=== PATIENT | female | born 1975 | race Caucasian/White ===

== ENCOUNTER 2019-08-24 11:15 | Day surgery (SDC) | payer BC ==
[2019-08-19 15:41] LABS: Urine Appearance CLEAR; Urine Bilirubin NEGATIVE (NEG); Urine Blood NEGATIVE (NEG); Urine Color YELLOW; Urine Glucose NEGATIVE (NEG); Urine Protein NEGATIVE (NEG); Urine Urobilinogen 0.2 mg/dL (0.2-1.0)
[2019-08-19 15:42] LABS: Urine Microscopic Reflex NO UMIC
[2019-08-19 15:47] LABS: Absolute Lymphocytes (CBC) 2.1 K/uL (0.7-4.9); Basophils % 0.7 % (0-1.3); Hematocrit 40.1 % (36.0-45.0); Lymphocytes % 31.9 % (15.3-44.8); MPV 8.6 fL (7.6-11.3); RBC Red Blood Cell Count 4.53 M/uL (3.86-4.86)
[~2019-08-24 11:15] MED LIST: Ringers Lactate 1,000 ML IV SCH; SCOPOLAMINE HYDROBROMIDE PATCH TD SCH
--- OUTSIDE RECORDS SUMMARY | 2019-08-24 11:19 | XMS REPORT ---
:1975 Author Organization eClinicalWorks Care Team Providers Name Role Phone Daylin Au Provider Role Unavailable Allergies No Known Allergies Problems Problem Type Condition Code Onset Dates Condition Status Assessment Depression with anxiety F41.8 Active Problem Gastroesophageal reflux disease, K21.9 Active esophagitis presence not specified Problem Migraine without status G43.909 Active migrainosus, not intractable, unspecified migraine type Problem Depression with anxiety F41.8 Active Assessment Migraine without status G43.909 Active migrainosus, not intractable, unspecified migraine type Problem Acne, unspecified acne type L70.9 Active Problem Attention deficit disorder, F98.8 Active unspecified hyperactivity presence Medications Medication Code Code Instructions Start End Date Status Dosage System Date Topiramate [facility] 34249093515 100 mg Orally Active 1 tablet Once a day Sertraline HCl [facility] 96151549362 50 MG Orally Active 1 tablet Once a day Results No Known Results Summary Purpose eClinicalWorks Submission
[2019-08-24] MEDS ORDERED: SCOPOLAMINE HYDROBROMIDE PATCH TD ONE (11:28)
[2019-08-24] MEDS ORDERED: Ringers Lactate 1,000 ML IV ONE ×4 (11:28→18:41)
[2019-08-24] MEDS ORDERED: CEFAZOLIN/SWI 2gm 2 GM/20 ML SYR ONE (11:28)
[2019-08-24] MEDS: CEFAZOLIN/SWI 2gm 2 GM/20 ML SYR IVP SCH ×3 (11:48→13:57)
[2019-08-24] MEDS ORDERED: ROCURONIUM 50 MG/5 ML VIAL IV ONE (13:18)
[2019-08-24] MEDS ORDERED: GLYCOPYRROLATE 0.2 MG/ML SYR ONE ×2 (13:18→15:48)
[2019-08-24] MEDS ORDERED: propofoL 200 MG/20 ML VIAL IV ONE (13:18)
[2019-08-24] MEDS ORDERED: dexAMETHasone 10 MG/ML VIAL ONE (13:18)
[2019-08-24] MEDS ORDERED: MIDAZOLAM HCL 2 MG/2 ML INJ ONE (13:19)
[2019-08-24] MEDS ORDERED: FENTANYL CITR 250 MCG/5 ML ONE (13:19)
[2019-08-24] MEDS ORDERED: ONDANSETRON 4 MG/2 ML VIAL ONE ×2 (13:19→16:29)
[2019-08-24] MEDS ORDERED: LIDOCAINE 2% MPF 5 ML VIAL ONE (13:19)
[2019-08-24] MEDS: BUPIVACAINE 0.25% PF 30 ML VIAL ONE ×2 (14:01→14:31)
[2019-08-24] MEDS ORDERED: NS 0.9% VIAL 10 ML ONE (15:11)
[2019-08-24] MEDS ORDERED: VECURONIUM 10 MG/VIAL IV ONE (15:13)
[2019-08-24] MEDS ORDERED: KETOROLAC 30 MG/ML INJ ONE (15:28)
[2019-08-24] MEDS ORDERED: NEOSTIGMINE 1 MG/ML -10 ML VIAL ONE (15:48)
[2019-08-24] MEDS: HYDROMORPHONE HCL 1 MG/ML INJ ONE ×4 (16:18→16:36)
[2019-08-24] MEDS ORDERED: HYDROCODONE/APAP 5/325 MG TAB ONE (17:28)
[2019-08-24 17:52] VITALS: BP 94/57; TEMP 97.2; O2SAT 93
--- NOTE | 2019-08-27 10:18 | OP ---
Date of Procedure: 08/24/2019 Surgeon: Ophelia Garcia MD Cigarette Filter Inspector: Anabela Francois. Preoperative Diagnoses: 1.Pelvic pain. 2.Recurrent menorrhagia after ablation. Postoperative Diagnoses: 1.Pelvic pain. 2.Recurrent menorrhagia after ablation. 3.Bilateral hematosalpinges. 4.Bladder adhesions. 5.Uterine prolapse. Procedures Performed: 1.Total laparoscopic hysterectomy with bilateral salpingectomy. 2.Uterosacral ligament suspension, colpopexy. 3.Cystoscopy. 4.Right ovarian cystectomy. Anesthesia: General. Estimated Blood Loss: Minimal. Specimens: Uterus and bilateral tubes. Complications: No complications. Drains: No drains. Condition: Stable. Indications: Patient with history of endometrial ablation in 1999, has recurrent bleeding over the p ast year, increasing pain at the onset, and then followed by recurrent bleeding. On evaluation, no a dnexal masses. No suspicion for endometrial atypia or malignancy. Transvaginal ultrasound showed ca vity obliteration. Attempted endometrial sampling was inadequate, limited evaluation due to scant am ount of endometrial tissue retrieved during the procedure. So, she was counseled her options of usin g depot medroxyprogesterone acetate, possibly using combination oral contraceptive pill, but she has headaches, which are contraindication to the OCs. All alternatives including diagnostic laparoscopy, possible salpingectomy if endometriosis is present, hysterectomy with bilateral salpingec pedro pablo, and endometriosis removal if present were all reviewed with the patient. Benefits and risks of all procedures were reviewed. She was then consented and taken to the OR. She is status post tubal ligation. Description Of Procedure: After informed consent was verified, she was taken back to the OR. 2 g of Ancef were given. She was placed in supine position on the operating table. General anesthesia giv en. Placed in dorsal lithotomy position. Pelvic exam performed. Uterus anteflexed. No adnexal mas ses. No cul-de-sac nodularity or uterosacral nodularity. Abdomen prepped with ChloraPrep. Vaginal prep with Betadine. Draped in a sterile fashion. Time-out was done. Arms were tucked by the side. SCDs placed. After time-out was complete, then the proced ure was started. Speculum was placed to expose the cervix. Anterior lip grasped with Allis clamps. A uterine manipul ator equivalent to VCare cup was introduced into the uterine cavity. There was slight difficulty ent ering the cavity, but once this was entered and the manipulator was placed in the uterine cavity, the cup was fit around the cervix. Serrano was placed in the bladder and attached to cysto tubing to an L R bag, emptied 300. This area was draped. A 1 cm infraumbilical incision was made with a scalpel us ing the open laparoscopy technique. Fascia was incised. Peritoneum was picked up, incised sharply, and S-retractors placed in the peritoneal cavity. Edges of the fascia were tagged with 0 Vicryl sutu res. Site of entry unremarkable. There were omental adhesions above the level of the entry. Omenta l adhesions of bowel was seen here. Patient was then placed in Trendelenburg position. There were s mall bowel adhesions on the right sigmoid, but nothing that needed to be taken down in order for me t o perform a procedure. A 5 mm left lower quadrant port was placed and a 10 mm suprapubic port was placed under direct vision once Marcaine was injected at the fascia level and the skin. Inspection of the peritoneal cavity revealed normal appendix, no endometriosis on the pelvic peritone um with careful examination, ovaries normal, bilateral hematosalpinges. There was a large clip, prob ably a Filshie clip floating in the cul-de-sac, but nothing on the opposite side was seen. Once all inspection was done, bladder adhesions were present. Plan was to perform a hysterectomy. There was laxity of the vaginal apex, point C was -3, so also considered performing a uterosacral holliday spension after the hysterectomy. I decided to the uterosacral was need to be re-attached to the top of the vaginal apex. LigaSure was taken. Utero-ovarian ligament, mesosalpinx, proximal tube with hematosalpinx was left i ntact with the uterine specimen. Then, the round ligaments were all taken down. Anterior and holter scanning technician ior broad ligaments were opened up. Anterior was raised to raise the bladder flap, posterior taken d own to the uterosacral after identifying the ureters on both sides from the pelvic brim to the ureter ic tunnel. There was no distortion identified. The step was performed to let the ureter fall away t o the side. The broad ligament was taken down to skeletonize the left side vessels. A similar disse ction was performed on the opposite side taking the utero-ovarian ligament. The mesosalpinx with the proximal tube was left intact with the uterus and round ligament. Then, the anterior and posterior broad ligaments were opened up to release the ureter away on the right side posteriorly and then ante riorly the bladder flap connected. Then, the vesicovaginal space was entered using monopolar hook bl natalie. Bladder dissected inferiorly. Then, the vessels were taken down on the right and bi polar basket tip followed by LigaSure and then cardinal ligaments were taken down with the LigaSure. On the opposite side, similar procedure was done, taken down the vessels, and then using the bipolar basket tip and the LigaSure, the cardinal ligaments were also taken down. Two clips were placed at the level of the uterine vessels on the left as this seemed to have small amount of venous bleeding. There was excellent hemostasis after this. Circumferential colpotomy was performed with a monopolar hook blade. The specimen was detached and pulled out through the vagina. Thorough irrigation and s uction were performed at the vaginal cuff. Then, closure was with 0 PDS simple at both angles, 3 fig xpsj-gu-tkjdbq in the middle, a trhnfk-fz-ucqwz on the right side was put through the distal part of the uterosacral ligament, rectovaginal septum, then anterior precervical fascia. Hwqvnx-bg-cydjt sec ond suture was done and tied down. There was excellent support of the apex and reattachment to the s lightly proximal part of the distal half of the uterosacral ligament. The rest of the ligament appea red to be intact and so this reattachment was made. On the left side, the uterosacral ligament was m uch more stretched out and detached, so this was pulled up by placing 0 PDS suture in the distal part and then pulling for retraction to visualize the uterosacral. Then about 3-5 cm from the distal ___ suture was taken down to the uterosacral and then through the rectovaginal septum and the ant erior pelvic fascia after the closure with owatbs-ic-gscmo. This was resuspension, especially on the left side than on the right. and therefore the support procedure needed to be done. Then, cystoscopy was performed. No evidence of any ureteral kinking. Strong jets of urine f rom both ureteric orifices were visualized. No evidence of any trauma to the bladder. Serrano was lef t out and gloves were changed. Thorough irrigation and suction were performed. Distal parts of the tubes were dissected away and removed from the ovary and retrieved as specimens. There was a right o varian cyst that was present that was excised and removed as well. That was large, suspected also co rpus luteal cyst, but it appeared to be much larger with thicker wall, so resected and removed. Thorough irrigation and suction were performed. Excellent hemostasis at the pedicles. Both ureters, no mechanical elliptical, or thermal injury was noted. Trocars were removed under direct vision. M arcaine injected at the fascia and skin. Gas desufflated. Umbilical trocar removed. Fascia closed with the help of 0 Vicryl tag sutures, tied together on both ends, and simple 0 Vicryl stitch at the fascia on the suprapubic site. All the skin incisions were closed with the help of subcuticular 4-0 Vicryl interrupted sutures. Dermabond placed occlusion sponges were removed. Instrument, needle, and sponge counts were done and were correct at the end of the procedure. Patient tolerated the procedure well. She was recovered from anesthesia and taken to PACU in stable condition. MARIIA Voice ID: [id number] Report ID: [id number]
== END 2019-08-24 19:50 | disposition home or self-care (01) ==
LOC: OR 11:15
PROVIDERS: ATTEND Obstetrics & Gynecology
PROC: 0UT74ZZ Resection of Bilateral Fallopian Tubes, Percutaneous Endoscopic Approach (ICD-10-PCS; 2019-08-24)
PROC: 0UB04ZZ Excision of Right Ovary, Percutaneous Endoscopic Approach (ICD-10-PCS; 2019-08-24)
PROC: 0USG7ZZ Reposition Vagina, Via Natural or Artificial Opening (ICD-10-PCS; 2019-08-24)
PROC: 0UT94ZZ Resection of Uterus, Percutaneous Endoscopic Approach (ICD-10-PCS; principal; 2019-08-24 13:00)
DX: N92.0 Excessive and frequent menstruation with regular cycle (principal); N81.4 Uterovaginal prolapse, unspecified; N83.6 Hematosalpinx; K66.0 Peritoneal adhesions (postprocedural) (postinfection); N83.8 Other noninflammatory disorders of ovary, fallopian tube and broad ligament; N32.89 Other specified disorders of bladder; K21.9 Gastro-esophageal reflux disease without esophagitis; F90.9 Attention-deficit hyperactivity disorder, unspecified type; F41.9 Anxiety disorder, unspecified; F32.9 Major depressive disorder, single episode, unspecified; Z87.891 Personal history of nicotine dependence; Z80.3 Family history of malignant neoplasm of breast; Z83.3 Family history of diabetes mellitus
CPT/HCPCS: 85025; 36415; 86900; 86850; 81025; 86901; 88307; 81003; 58571; 58662; 57283; J2704; J2710; J2250; J3010; J1100; J1170 ×2; J0690; J7120 ×4; J2405 ×2

== ENCOUNTER 2024-11-02 12:44 | Emergency (ER) | payer BC ==
--- OUTSIDE RECORDS SUMMARY | 2024-11-02 12:47 | XMS REPORT | Continuity of Care Document ---
Author Name Unknown Address [address] [facility] [address] [facility] [place] [address] [facility] thconnect Address [address] [facility] [address] [place] [address] Care Team Providers Care Pullboat Engineer Name Role Phone Daylin Au Attending Clinician Unavailable Lisbet Pinon Attending Clinician Unavailabl e [id number] Attending Clinician Unavaila ble [facility] Attending Clinician Un available Joan Worthy Attending Clinician JOAN MONCADA Attending Clinician Unavailable Lisbet Pinon Admitting Clinician Unavailabl e [email or web address]_S Admitting Clinician Unavaila ble Payers Payer Name Policy Type Policy Number Effective Date Expirati on Date Source Blue Cross and Blue Shield C1 [id number] [facility] Blue Cross and Blue Shield C1 [id number] [facility] Problems Condition Name Condition Details Condition Category Status Onset Date Resolution Date Last Treatment Date Treating Clinician Comments Source [id number] Attention deficit disorder, unspecifie d hyperactiv ity presence Problem Active [facility] [id number] Acne, unspecifie d acne type Problem Active [facility] [id number] Migraine without status migrainosu s, not intractabl e, unspecifie d migraine type Problem Active [facility] [id number] Gastroesop hageal reflux disease, esophagiti s presence not specified Problem Active [facility] No known active problems No known active problems Disease [facility] Mixed anxiety and depressive disorder Depression with anxiety Problem Active [facility] [id number] Skin lesions Problem Active [facility] Allergies, Adverse Reactions, Alerts Allergy Name Allergy Type Status Severity Reaction(s) Onset Date Inactive Date Treating Clinician Comments Source NO KNOWN ALLERGIE S Drug Class Active [facility] Social History Social Habit Start Date Stop Date Quantity Comments Source History of Tobacco Use Former Smoker [facility] Sex Assigned At [facility] Exposure to SARS-CoV-2 (event) Not sure [facility] Tobacco use and exposure 2020-07-05 00:00:00 2020-07-05 00:00:00 Never used [facility] Smoking Status Start Date Stop Date Source Never smoker [facility] Former Smoker 2020-06-15 00:00:00 2020-06-15 00:00:00 [facility] Medications Ordered Medication Name Filled Medication Name Start Date Stop Date Current Medication? Ordering Clinician Indication Dosage Frequency Signature (SIG) Comments Components Source bromphenira mine-pseudo ephedrine-D M (BROMFED DM) 2-30-10 mg/5 mL syrup 2019-09 00:00: 00 07-16 05:59 :00 No [id number] 5mL Take 5 mL by mouth 4 (four) times daily as needed for Congestion /Allergies or Cough for up to 10 days. [facility] methylPREDN ISolone 4 mg tablets 2019-09 00:00: 00 07-12 05:59 :00 No [id number] Take by mouth SEE-INSTRU CTIONS for 6 days. follow package directions [facility] omeprazole 40 mg capsule 2019-09 00:00: 00 Yes 40mg Take 40 mg by mouth every morning. [facility] topiramate 100 mg tablet 04-12 00:00: 00 Yes 100mg Take 100 mg by mouth daily. [facility] sumatriptan 100 mg tablet 04-07 00:00: 00 Yes TAKE 1 TABLET AT START OF MIGRAINE MAY REPEAT DOSE X1 AFTER 2H MAX 200 MG/2H ORALLY [address] [facility] Sertraline HCl Sertraline HCl Yes Daylin Millender 1-1/2 tablets [facility] Omeprazole Omeprazole Yes Daylin Millender 1 capsule [facility] Imitrex Imitrex Yes Daylin Millender 1 tablet as needed for migraine mejia [facility] Topiramate Topiramate Yes Daylin Millender 1 tablet [facility] Adderall Adderall Yes Daylin Millender 1 tablet in the morning [facility] Topiramate Topiramate Yes Daylin Millender 1 tablet [facility] Imitrex 100 MG Imitrex 100 MG No Imitrex 100 MG Topiramate 25 MG Topiramate 25 MG No 1{table t} Topiramate 25 MG Sertraline HCl 50 MG Sertraline HCl 50 MG No QD Sertraline HCl 50 MG Topiramate 100 mg Topiramate 100 mg No 1{table t} QD Topiramate 100 mg Omeprazole 40 MG Omeprazole 40 MG No 1{capsu le} QD Omeprazole 40 MG Mupirocin Mupirocin 04-22 00:00 :00 No Daylin Millender apply to affected area(s) [facility] Vital Signs Vital Name Observation Time Observation Value Comments S ource Systolic blood pressure 2020-07-05 14:46:00 107 mm[Hg] [facility] Diastolic blood pressure 2020-07-05 14:46:00 77 mm[Hg] [facility] Heart rate 2020-07-05 14:46:00 92 /min [facility] Body temperature 2020-07-05 14:46:00 36.94 Mariela [facility] Respiratory rate 2020-07-05 14:46:00 17 /min [facility] Body height 2020-07-05 14:46:00 152.4 cm [facility] Body weight 2020-07-05 14:46:00 69.4 kg [facility] BMI 2020-07-05 14:46:00 29.88 kg/m2 [facility] Oxygen saturation in Arterial blood by Pulse oximetry 2020-07-05 14:46:00 96 /min [facility] height 2020-06-15 09:00:00 60 [in_i] Commo n [facility] weight 2020-06-15 09:00:00 155.2 [lb_av] Co mmon [facility] temperature 2020-06-15 09:00:00 97.7 [degF] Com mon [facility] bmi 2020-06-15 09:00:00 30.31 kg/m2 Comm on [facility] oximetry 2020-06-15 09:00:00 97 % Commo n [facility] respiratory rate 2020-06-15 09:00:00 15 /min [facility] blood pressure systolic 2020-06-15 09:00:00 110 mm[Hg] [facility] blood pressure diastolic 2020-06-15 09:00:00 72 mm[Hg] [facility] Procedures Procedure Date / Time Performed Performing Clinicia n Source POCT FLU A AND B (MOLECULAR) 2020-07-05 15:06:00 Joan Moncada [facility] POCT GRP A STREP (MOLECULAR) 2020-07-05 00:00:00 [facility] Encounters Start Date/Time End Date/Time Encounter Type Admission Type Attending Clinicians Care Facility Care Department Encounter ID Source 2021-10-04 12:17:56 Outpatient [facility] [id number] [facility] 2021-10-04 11:49:30 Outpatient Daylin Au [facility] [id number] [facility] 2021-10-04 11:12:58 Outpatient Daylin Au [facility] [id number] [facility] 2021-10-04 11:10:32 Outpatient Daylin Au [facility] [id number] [facility] 2021-10-04 11:08:26 Outpatient Daylin Au [facility] [id number] [facility] 2021-10-04 11:05:20 Outpatient Daylin Au [facility] [id number] [facility] 2023-09-03 10:11:00 2023-09-03 10:11:00 Outpatient Lisbet Deluna [facility] [id number] [facility] 2023-07-07 00:00:00 2023-07-07 00:00:00 Outpatient GC_GCBZW_Ka diyala_S PRIV [facility] [id number] [facility] 2020-07-05 09:32:57 2020-07-05 09:52:57 Urgent Care Provider, [facility] Urgent Care Joan Moncada [facility] [id number] [facility] 2020-07-05 09:40:00 2020-07-05 09:40:00 Outpatient R [facility] [id number] [facility] 2020-07-05 09:40:00 2020-07-05 09:40:00 Outpatient R JOAN MONCADA [facility] [id number] [facility] 2020-06-15 00:00:00 2020-06-15 00:00:00 (TEL) [facility] [id number] [facility] 2020-06-15 00:00:00 2020-06-15 00:00:00 PREV VISIT EST AGE 40-64 STLMLC [facility] [id number] [facility] 2020-04-12 08:20:00 2020-04-12 08:20:00 [facility] [id number] [facility] 2020-04-04 12:28:00 2020-04-04 12:28:00 [facility] [id number] [facility] 2019-11-05 08:30:00 2019-11-05 08:30:[address] [facility] [facility] [id number] [facility] 2019-10-16 16:35:00 2019-10-16 16:35:00 [facility] [place] [facility] [id number] [facility] 2019-06-30 08:40:00 2019-06-30 08:40:00 [facility] [id number] [facility] 2019-03-10 08:40:00 2019-03-10 08:40:00 [facility] [id number] [facility] 2018-01-16 09:30:00 2018-01-16 09:30:00 [facility] Medicine [id number] [facility] Results Test Description Test Time Test Comments Results Result Co mments Source [facility]2020-07-05 15:02:00* Test Item Value Reference Range Interpretation Comme nts POCT GP A STREP (test code = 11069-8) neg Negative - Negative STAN (test code = STAN) accurate developme nt and interpretation of all internal controls Lab Interpretation (test code = 79820-8) Normal [facility]
[2024-11-02] MEDS ORDERED: ASPIRIN 81 MG CHEWABLE TABLET ONE (13:08)
[2024-11-02 13:25] LABS: Absolute Eosinophils 0.1 K/uL (0-0.5); Absolute Monocytes 0.4 K/uL (0.1-1.3); Absolute Neutrophil 3.7 K/uL (1.8-8.0); Basophils % 0.7 % (0-1.3); Hematocrit 39.4 % (36.0-45.0); Hemoglobin 13.7 g/dL (12.0-15.0); Lymphocytes % 31.7 % (15.3-44.8); MCH 29.8 pg (27.0-35.0); MCHC 34.7 g/dL (32.0-36.0); MPV 8.2 fL (7.6-11.3); Monocytes % 6.2 % (3.3-12.3); Neutrophils % 59.4 % (41.7-73.7); Platelets 199 thou/uL (152-406); RBC Red Blood Cell Count 4.58 M/uL (3.86-4.86); Red Cell Distribution Width 13.8 % (12.1-15.2)
[2024-11-02 13:32] LABS: Protime INR 1.06
[2024-11-02 13:40] LABS: Anion Gap 8.9 mEq/L (5.0-15.0); BUN Blood Urea Nitrogen 10 mg/dL (7-18); Bicarbonate 25 mEq/L (21-32); Glomerular Filtration Rate 110 ml/min (=/>90); Glucose Level 90 mg/dL (74-106); Magnesium 2.1 mg/dL (1.6-2.4); Potassium 3.9 mEq/L (3.5-5.1); Sodium Level 139 mEq/L (136-145)
[2024-11-02 13:43] LABS: Troponin High Sensitivity < 3.0 pg/mL (<58.9)
--- NOTE | 2024-11-02 15:12 | RAD REPORT ---
EXAM: Chest Single View HISTORY: CHEST PAIN COMPARISON: None. FINDINGS: LUNGS/PLEURA: Low lung volumes with linear opacities bilaterally. Possible small pleural effusions. MEDIASTINUM: The mediastinal silhouette is within normal limits. CARDIAC: The cardiac silhouette is within normal limits. UPPER ABDOMEN: No significant abnormality. BONES: No acute abnormality. LINES/TUBES/OTHER: N/A IMPRESSION: Low lung volumes with likely underlying atelectasis and small pleural effusions. Pneumonia/pneumoniti s cannot be excluded radiographically.
--- NOTE | 2024-11-02 15:27 | EDPHYS ---
Physician Documentation [facility] Name: Gavi Smith Age: 48 yrs Sex: Female : 1975 Arrival Date: 11/02/2024 Time: 12:44 Bed 11 Private MD: ED Physician Glenn Price HPI: 11/02 12:53 This 48 yrs old Female presents to ER via Unassigned with complaints of Chest Pain. ms3 12:53 48-year-old female with no past medical history presents emergency department for chest ms3 pain that began Saturday. Patient states the pain is located in the middle of her chest and rated an 8/10. Patient took Aleve with mild relief. She denies nausea, vomiting. She endorses shortness of breath. Patient is not taking oral contraceptive pills or hormone replacement therapy.. 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 Flu vaccine is up to date. - Infectious Disease History:: Denies. - Social history:: Smoking status: Patient denies any tobacco usage or history of. ROS: 12:53 Constitutional: Negative for fever, and chills. ms3 12:53 Abdomen/GI: Negative for abdominal pain, nausea, vomiting, diarrhea, and constipation, MS/Extremity: Negative for injury and deformity, Skin: Negative for injury, rash, and discoloration, 12:53 Cardiovascular: Positive for chest pain, 12:53 Respiratory: Positive for shortness of breath, Exam: 12:53 Constitutional: This is a well developed, well nourished patient who is awake, alert, ms3 and in no acute distress. Cardiovascular: Regular rate and rhythm with a normal S1 and S2. No gallops, murmurs, or rubs. Normal PMI, no JVD. No pulse deficits. Respiratory: Lungs have equal breath sounds bilaterally, clear to auscultation and percussion. No rales, rhonchi or wheezes noted. No increased work of breathing, no retractions or nasal flaring. Abdomen/GI: Soft, non-tender, with normal bowel sounds. No distension or tympany. No guarding or rebound. No evidence of tenderness throughout. Skin: Warm, dry with normal turgor. Normal color with no rashes, no lesions, and no evidence of cellulitis. MS/ Extremity: Pulses equal, no cyanosis. Neurovascular intact. Full, normal range of motion. 15:19 ECG was reviewed by the Attending Physician. ms3 Vital Signs: 12:59 BP 127 / 82; Pulse 72; Resp 18; Temp 97.7; Pulse Ox 96% on R/A; Weight 74.39 kg; Height ap3 5 ft. 0 in. ; Pain 8/10; 15:15 BP 112 / 71; Pulse 71; Resp 18 S; Pulse Ox 99% on R/A; kc6 12:59 Body Mass Index 32.03 (74.39 kg, 152.4 cm) ap3 12:59 Pain Scale: Adult ap3 MDM: 12:53 Medical Screening Exam initiated ms3 12:53 Differential diagnosis: abnormal EKG, acute myocardial infarction, coronary artery ms3 disease chest wall pain. 18:40 HEART Score: History: Slightly Suspicious (0), ECG: Normal (0), Age: > 45 and < 65 ms3 years (1), Risk Factors: 1 or 2 risk factors (1), Troponin: < or = 1 x Normal Limit (0), Total Score = 1. The patient was given aspirin in the Emergency Department. Data reviewed: vital signs, nurses notes, lab test result(s), EKG, radiologic studies, and as a result, I will discharge patient. I considered the following discharge prescriptions or medication management in the emergency department Medications were administered in the Emergency Department. See MAR. Independent interpretation of the following test(s) in the Emergency Department EKG: See my EKG interpretation above. Counseling: I had a detailed discussion with the patient and/or guardian regarding the historical points, exam findings, and any diagnostic results supporting the discharge/admit diagnosis, lab results, radiology results, the need for outpatient follow up, to return to the emergency department if symptoms worsen or persist or if there are any questions or concerns that arise at home. Special discussion: Based on the patient's history, exam, and Dx evaluation, there is no indication for emergent intervention or inpatient Tx. It is understood by the patient/guardian that if the Sx's persist or worsen they need to return immediately for re-evaluation. ED course: Discussed labs, chest x-ray, EKG with patient. Patient to follow-up with primary care physician in 2 to 3 days. All questions were answered. Return precautions discussed include worsening symptoms, or any other concerns. On reevaluation patient is alert and oriented x 4, no apparent distress, nontoxic-appearing, ambulatory in the emergency department, speaking full sentences.. 11/02 12:46 Order name: Basic Metabolic Panel; Complete Time: 13:53 ms3 11/02 12:46 Order name: CBC with Diff; Complete Time: 13:53 ms3 11/02 12:46 Order name: Magnesium; Complete Time: 13:53 ms3 11/02 12:46 Order name: PT-INR; Complete Time: 13:53 ms3 11/02 12:46 Order name: Troponin HS; Complete Time: 13:53 ms3 11/02 12:46 Order name: XRAY Chest (1 view); Complete Time: 15:22 ms3 11/02 12:46 Order name: Cardiac monitoring; Complete Time: 13:22 ms3 11/02 12:46 Order name: EKG - Nurse/Tech; Complete Time: 13:02 ms3 11/02 12:46 Order name: IV Saline Lock; Complete Time: 13:12 ms3 11/02 12:46 Order name: Labs collected and sent; Complete Time: 13:12 ms3 11/02 12:46 Order name: O2 Per Protocol; Complete Time: 13:22 ms3 11/02 12:46 Order name: O2 Sat Monitoring; Complete Time: 13:23 ms3 EC:19 Rate is 80 beats/min. Rhythm is regular. QRS Spencer is Normal. [place] interval is normal. QRS ms3 interval is normal. Clinical impression: Normal ECG. Interpreted by me. Reviewed by me. Administered Medications: 13:22 Drug: Aspirin PO Chewable Tablet 324 mg PO once; 81 mg tablets x 4 Route: PO; kc6 14:13 Follow up: Response: No adverse reaction kc6 Disposition Summary: 11/02/24 15:27 Discharge Ordered Notes: Location: Home ms3 Condition: Stable ms3 Diagnosis - Chest pain, unspecified ms3 Followup: ms3 - With: Long Richardson MD - When: 2 - 3 days - Reason: Recheck today's complaints Followup: ms3 - With: Private Physician - When: 2 - 3 days - Reason: Recheck today's complaints Discharge Instructions: - Discharge Summary Sheet ms3 - Nonspecific Chest Pain, Adult ms3 Forms: - Medication Reconciliation Form ms3 - Antibiotic Education ms3 - Prescription Opioid Use ms3 - Patient Portal Instructions ms3 - Leadership Thank You Letter ms3 Signatures: Dispatcher [employer] EDMS Rosa De León, RN RN ap3 Glenn Price DO DO ms3 Mirna Cavazos RN RN kc6 Corrections: (The following items were deleted from the chart) 12:47 12:46 BASIC METABOLIC PANEL+C.LAB.BRZ ordered. EDMS EDMS 12:47 12:46 CBC+H.LAB.BRZ ordered. EDMS EDMS 12:47 12:46 MAGNESIUM+C.LAB.BRZ ordered. EDMS EDMS 12:47 12:46 PROTIME (+INR)+COAG.LAB.BRZ ordered. EDMS EDMS 12:47 12:46 Troponin High Sensitivity+C.LAB.BRZ ordered. EDMS EDMS 12:47 12:47 Chest Single View+RAD.RAD.BRZ ordered. EDMS EDMS
--- NOTE | 2024-11-02 15:27 | ER ---
Nurse's Notes [facility] Name: Gavi Smith Age: 48 yrs Sex: Female : 1975 Arrival Date: 11/02/2024 Time: 12:44 Bed 11 Private MD: Diagnosis: Chest pain, unspecified Presentation: 11/02 12:59 Chief complaint: Patient states: she was woken up by chest pains on Saturday10/31/24 ap3 that she rates an 8/10 on the pain scale. patient states she has never had this type of pain before. Coronavirus screen: At this time, the client does not indicate any symptoms associated with coronavirus-19. Ebola Screen: No symptoms or risks identified at this time. Initial Sepsis Screen: Does the patient meet any 2 criteria? No. Patient's initial sepsis screen is negative. Does the patient have a suspected source of infection? No. Patient's initial sepsis screen is negative. Risk Assessment: Do you want to hurt yourself or someone else? Patient reports no desire to harm self or others. Onset of symptoms was October 31, 2024. 12:59 Method Of Arrival: Ambulatory ap3 12:59 Acuity: TANESHA 2 ap3 Triage Assessment: 13:01 General: Appears uncomfortable, Behavior is calm, cooperative, appropriate for age. ap3 Pain: Complains of pain in chest Pain currently is 8 out of 10 on a pain scale. Neuro: Level of Consciousness is awake, alert, obeys commands, Oriented to person, place, time, situation. Cardiovascular: Reports chest pain. Respiratory: Airway is patent Respiratory effort is even, unlabored, Respiratory pattern is regular, symmetrical. 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 Flu vaccine is up to date. - Infectious Disease History:: Denies. - Social history:: Smoking status: Patient denies any tobacco usage or history of. Screenin:01 [facility] ED Fall Risk Assessment (Adult) History of falling in the last 3 months, ap3 including since admission No falls in past 3 months (0 pts) Confusion or Disorientation No (0 pts) Intoxicated or Sedated No (0 pts) Impaired Gait No (0 pts) Mobility Assist Device Used No (0 pt) Altered Elimination No (0 pt) Score/Fall Risk Level 0 - 2 = Low Risk Oriented to surroundings, Maintained a safe environment, Educated pt \T\ family on fall prevention, incl call for assistance when getting out of bed, Assessed \T\ reinforced patient's understanding of fall precautions, Hourly rounding (assess needs \T\ fall precautionary measures) done, Used ambulatory aids as needed (educated on \T\ assisted with). Abuse screen: Denies threats or abuse. Nutritional screening: No deficits noted. Tuberculosis screening: No symptoms or risk factors identified. Assessment: 13:29 General: Appears in no apparent distress. comfortable, well groomed, well developed, kc6 Behavior is cooperative, appropriate for age, anxious, crying. Pain: Complains of pain in left breast Pain does not radiate. Pain currently is 8 out of 10 on a pain scale. Pain began 2-3 days ago. Neuro: Level of Consciousness is awake, alert, obeys commands, Oriented to person, place, time, situation, Appropriate for age. Cardiovascular: Reports chest pain, Heart tones S1 S2 present Capillary refill < 3 seconds Rhythm is regular. Respiratory: Airway is patent Trachea midline Respiratory effort is even, unlabored, Respiratory pattern is regular, symmetrical. GI: No signs and/or symptoms were reported involving the gastrointestinal system. : No signs and/or symptoms were reported regarding the genitourinary system. EENT: No signs and/or symptoms were reported regarding the EENT system. Derm: No signs and/or symptoms reported regarding the dermatologic system. Skin is intact, is healthy with good turgor, Skin is pink, warm \T\ dry. Musculoskeletal: No signs and/or symptoms reported regarding the musculoskeletal system. Circulation, motion, and sensation intact. Range of motion: intact in all extremities. 14:13 Reassessment: Patient appears in no apparent distress at this time. No changes from kc6 previously documented assessment. Patient and/or family updated on plan of care and expected duration. Pain level reassessed. Patient is alert, oriented x 3, equal unlabored respirations, skin warm/dry/pink. 15:11 Reassessment: Patient appears in no apparent distress at this time. No changes from kc6 previously documented assessment. Patient and/or family updated on plan of care and expected duration. Pain level reassessed. Patient is alert, oriented x 3, equal unlabored respirations, skin warm/dry/pink. Vital Signs: 12:59 BP 127 / 82; Pulse 72; Resp 18; Temp 97.7; Pulse Ox 96% on R/A; Weight 74.39 kg; Height ap3 5 ft. 0 in. ; Pain 8/10; 15:15 BP 112 / 71; Pulse 71; Resp 18 S; Pulse Ox 99% on R/A; kc6 12:59 Body Mass Index 32.03 (74.39 kg, 152.4 cm) ap3 12:59 Pain Scale: Adult ap3 ED Course: 12:45 Patient arrived in ED. as 12:46 Glenn Price DO is Attending Physician. ms3 12:59 EKG done, by ED staff, reviewed by Glenn Price DO. ap3 13:00 Triage completed. ap3 13:02 Patient maintains SpO2 saturation greater than 95% on room air. ap3 13:02 Arm band placed on right wrist. ap3 13:13 Basic Metabolic Panel Sent. bc6 13:13 CBC with Diff Sent. bc6 13:13 Magnesium Sent. bc6 13:13 PT-INR Sent. bc6 13:13 Troponin HS Sent. bc6 13:13 Initial lab(s) drawn, by ne, sent to lab. Inserted saline lock: 20 gauge in left bc6 antecubital area, using aseptic technique. Blood collected. Flushed with 10 mL NS. 13:29 Mirna Cavazos, RN is Primary Nurse. kc6 13:29 Patient has correct armband on for positive identification. Placed in gown. Bed in low kc6 position. Call light in reach. Side rails up X 1. engine monitor on. Pulse ox on. NIBP on. Door closed. Noise minimized. Lights dimmed. Warm blanket given. Pillow given. Verbal reassurance given. 14:01 XRAY Chest (1 view) In Process Unspecified. EDMS 15:27 Long Richardson MD is Referral Physician. ms3 15:49 No provider procedures requiring assistance completed. IV discontinued, intact, kc6 bleeding controlled, No redness/swelling at site. Pressure dressing applied. Administered Medications: 13:22 Drug: Aspirin PO Chewable Tablet 324 mg PO once; 81 mg tablets x 4 Route: PO; kc6 14:13 Follow up: Response: No adverse reaction kc6 Medication: 15:49 VIS not applicable for this client. kc6 Outcome: 15:27 Discharge ordered by . ms3 15:49 Discharged to home ambulatory, kc6 15:49 Condition: good 15:49 Discharge instructions given to patient, Instructed on discharge instructions, follow up and referral plans. Demonstrated understanding of instructions, follow-up care, 15:49 Patient left the ED. kc6 Signatures: Dispatcher [employer] Kaela Moore Amanda RN RN ap3 Glenn Price, DO JOE ms3 Mirna Cavazos, RN RN kc6 Elo [email or web address]
[2024-11-02 15:57] VITALS: TEMP 97.7
[2024-11-02 15:58] VITALS: BP 112/71; O2SAT 99
== END 2024-11-02 15:49 | disposition home or self-care (01) ==
LOC: ER 12:44
DX: R07.9 Chest pain, unspecified (principal); R06.02 Shortness of breath
CPT/HCPCS: 36415; 71045; 80048; 83735; 84484; 85025; 85610; 93005; 99284